=== PATIENT | male | born 1950 | race Caucasian/White ===

== ENCOUNTER 2017-09-04 08:49 | Emergency (ER) | payer OTHER, MEDICARE ==
[~2017-09-04] VITALS: Ht 190.5 cm; Wt 91.0 kg
[2017-09-04 09:02] VITALS: Ht 190.5 cm; Wt 91.0 kg
[2017-09-04 09:18] VITALS: TEMP 36.4
[2017-09-04] MEDS ORDERED: ACETAMINOPHEN 500 MG TAB PO STA (09:32)
--- NOTE | 2017-09-04 10:13 | DIAGNOSTIC IMAGING REPORT ---
L PELVIS/UNILATERAL HIP 2-3VIEWS CLINICAL HISTORY: LEFT HIP, PELVIS PAIN FROM FALL COMPARISON STUDY: None. FINDINGS: Nondisplaced fractures within the left superior and inferior pubic rami. No acute fracture or dislocation within the proximal left femur. There is mild osteoarthritis within the left hip. The sacrum appears intact. IMPRESSION: Nondisplaced left pubic ring fractures. Electronically signed by: Jacob Mancilla M.D. 09/04/2017 10:12 AM Dictated Date/Time: 09/04/2017 10:10 AM
--- NOTE | 2017-09-04 10:16 | DIAGNOSTIC IMAGING REPORT ---
LUMBAR SPINE 5 VIEWS HISTORY: LEFT LOW BACK PAIN, FALL FROM LADDER COMPARISON: None. FINDINGS: Moderate facet osteoarthritis within the lower lumbar spine. There is moderate disc space narrowing at L4-L5 and L5-S1 with small endplate osteophytes. Mild superior endplate compression fracture at L2 which demonstrates approximately 10-15% loss of height. No significant retropulsion. Possible fracture of the left L2 transverse process. No subluxation. Old, healed left-sided rib fractures. The sacrum appears intact. IMPRESSION: 1. Acute mild superior endplate compression fracture at L2. No retropulsion. 2. Possible fracture at the left L2 transverse process. 3. Degenerative changes as described above. Electronically signed by: Jacob Mancilla M.D. 09/04/2017 10:15 AM Dictated Date/Time: 09/04/2017 10:12 AM
[2017-09-04] MEDS ORDERED: OXYC1TAB3 PO (12:01)
--- NOTE | 2017-09-04 12:02 | EMERGENCY ROOM VISIT NOTE ---
ED Visit Note First contact with patient: 09:12 CHIEF COMPLAINT: Left low back and buttock pain after a fall one hour ago HISTORY OF PRESENT ILLNESS: Patient is a generally healthy 67-year-old white male who presents to emergency department for evaluation of left low back, hip and buttock pain after he fell off a ladder about an hour ago. He was roughly 9 feet up the ladder when it kicked out on him. He reports that he rode the ladder down, landing on his left back and side. He did not strike his head or lose consciousness and has complete recollection of the incident. He laid on the ground for a few moments before he felt well enough to get up. He was able to walk but it was difficult. He complains of pain in the left low back, extending into the left buttock and hip. He denies any neck pain, no anterior chest pain, rib pain or shortness of breath. He rates his pain a 10/10. He did take Aleve earlier today. He denies any numbness, tingling or weakness radiating into the lower extremities. REVIEW OF SYSTEMS: Review of systems as per HPI. All other systems reviewed were negative. At least 6 systems reviewed. PMH: Electronic medical records are reviewed and summarized as above/below. See Problem List. SOCIAL HISTORY: Patient lives at home with his near [place]. Nonsmoker. PHYSICAL EXAM: Vital Signs: Reviewed Nurse's notes. GENERAL: Patient is a pleasant, well-appearing 67-year-old white male who is awake and alert and in no acute distress. HEENT: Head - normocephalic and atraumatic. Pupils are equal, round, and reactive to light. Extraocular eye muscles are intact and sclera are anicteric. Ears - bilaterally patent canals with no evidence of hemotympanum. Nose - moist nasal mucosa without evidence of trauma or discharge. Mouth - moist buccal mucosa with no trauma to the teeth or signs of malocclusion. Neck: The neck is supple and there is no pain to palpation over the posterior cervical spine and no obvious step-offs or deformities. There is no JVD or tracheal deviation. Chest: There are no signs of deformities, contusions or abrasions to the chest wall. There is no obvious crepitus or paradoxical chest rise. Heart: Regular rate, and regular rhythm. Lungs: Breath sounds equal and clear to auscultation. Abdomen: Soft, completely nontender, nondistended, with good bowel sounds. There is no sign of trauma such as contusions, abrasions or penetrations. There are no palpable pulsatile masses or hepatosplenomegaly. There is no guarding, rigidity, or rebound noted. Extremities: No obvious trauma, deformities, contusions, or edema. He does not have any leg length discrepancy. There are linear abrasions noted over the anterior shins bilaterally. Ankles, calves and knees are nontender to palpation. He does not have any pain to palpation over the distal femur or the greater trochanter or in the left groin. Negative straight leg raise testing bilaterally. Hip range of motion is full and nontender. There are easily palpable peripheral pulses. Neuro: The patient is awake and alert and easily able to follow commands. Muscle strength is 5 out of 5 in all 4 extremities. Otherwise, neuro exam is unremarkable. Back: The entire thoracic, lumbar, and sacral spine were palpated. No discomfort over the thoracic spine spinous processes. He has discomfort low over the spinous processes of the lumbar spine, primarily on the last, extending into the left SI joint and into the left buttocks. There are no obvious step-offs or deformities noted. There are no obvious signs of trauma such as contusions abrasions penetrations noted to the back. EMERGENCY DEPARTMENT COURSE: The patient was seen and evaluated as above. He was offered medication for discomfort, had taken Aleve earlier today and did not want to take any narcotics until his imaging studies have been performed. He was given 1 g of Tylenol, and some ice packs. AP pelvis, left hip and lumbar spine x-rays are obtained. Pelvic x-ray noted nondisplaced fractures within the left superior and inferior pubic rami. Lumbar spine fractures noted a acute mild superior endplate compression fracture of L2, no retropulsion, possible fracture of the left L2 transverse process. There was a 10-15 15% loss of height of the vertebral fracture. No subluxation. Mild disc space narrowing was noted. All diagnostic imaging studies were reviewed with attending physician. The patient was issued crutches and instructed on a partial weight-bear gait on the left. He was given oxycodone 10 mg orally prior to discharge. He is established with an orthopedic surgery group out of [place], [place], and desires to follow-up with them regarding his injuries, which are nonsurgical in nature. Nonetheless, he was instructed to rest and avoid any strenuous activity until he can follow-up with orthopedics. He was given a copy of his radiographs for orthopedic follow-up. He was prescribed oxycodone for pain. He was ambulatory with crutches without difficulty. I do not suspect acute cord compression, epidural hematoma, intra-abdominal or retroperitoneal injury. The patient rated his discomfort a 6/10 at discharge. A friend was driving him home. Medication reconciliation: I attest that I have personally reviewed the patient' s current medication list. Blood pressure screening : Patient was found to have normal blood pressure on screening and does not require follow-up. L PELVIS/UNILATERAL HIP 2-3VIEWS CLINICAL HISTORY: LEFT HIP, PELVIS PAIN FROM FALL COMPARISON STUDY: None. FINDINGS: Nondisplaced fractures within the left superior and inferior pubic rami. No acute fracture or dislocation within the proximal left femur. There is mild osteoarthritis within the left hip. The sacrum appears intact. IMPRESSION: Nondisplaced left pubic ring fractures. LUMBAR SPINE 5 VIEWS HISTORY: LEFT LOW BACK PAIN, FALL FROM LADDER COMPARISON: None. FINDINGS: Moderate facet osteoarthritis within the lower lumbar spine. There is moderate disc space narrowing at L4-L5 and L5-S1 with small endplate osteophytes. Mild superior endplate compression fracture at L2 which demonstrates approximately 10-15% loss of height. No significant retropulsion. Possible fracture of the left L2 transverse process. No subluxation. Old, healed left-sided rib fractures. The sacrum appears intact. IMPRESSION: 1. Acute mild superior endplate compression fracture at L2. No retropulsion. 2. Possible fracture at the left L2 transverse process. 3. Degenerative changes as described above. Current/Historical Medications Scheduled PRN Oxycodone Immediate Rel Tab (Roxicodone Ir), 1-2 TAB PO Q4H PRN for Severe Pain Allergies Coded Allergies: No Known Allergies (Unverified , 09/04/17) Vital Signs Date Time Temp Pulse Resp B/P (MAP) Pulse Ox O2 Delivery O2 Flow Rate FiO2 09/04/17 12:29 68 18 127/76 95 09/04/17 10:27 64 18 105/71 96 Room Air 09/04/17 09:18 36.4 2/12/18 09:02 36.4 70 18 103/75 94 Room Air Medications Administered Medications (Trade) Dose Ordered Sig/Bisi Route Start Time Stop Time Status Last Admin Dose Admin Acetaminophen (Tylenol Tab) 1,000 mg NOW STAT PO 09/04/17 09:32 09/04/17 09:35 DC 09/04/17 09:32 1,000 MG Oxycodone HCl (Roxicodone Immediate Rel Tab) 10 mg NOW STAT PO 09/04/17 12:43 09/04/17 12:44 DC 09/04/17 12:57 10 MG Departure Information Impression Primary Impression: Fracture of left pelvis Additional Impression: Lumbar compression fracture Prescriptions Oxycodone Immediate Rel Tab (ROXICODONE IR) 5 Mg Tab 1-2 TAB PO Q4H Y for Severe Pain, #30 TAB For Initial Treatment Prov: Cecille Ragsdale PA 09/04/17 Referrals No Doctor, Assigned (PCP) Patient Instructions [facility] Additional Instructions Oxycodone (OxyIR) 5mg: Take 1-2 pills every four hours for breakthrough pain. Avoid alcohol, operating machinery or dangerous equipment, working on ladders or roofs, DRIVING, or situations where being under the influence may be dangerous. It is recommended to use an [id number] stool softener such as Colace, 100mg twice daily while taking this medication to avoid constipation. Ibuprofen(Motrin, Advil) may be used for fever or pain. Use 600mg every six hours as needed. Take with food. Avoid using more than 2400mg in a 24 hour period. Do not use 2400mg per day for more than three consecutive days without physician direction. Prolonged inappropriate use can lead to stomach upset or ulcers. This medication can be taken if you need to drive, work, or perform activities which may be dangerous when taking narcotic pain medication. (AND/OR) Acetaminophen(Tylenol) may be used for fever or pain. Use 1000mg every six hours as needed. Avoid using more than 3000mg in a 24 hour period. This medication can be taken if you need to drive, work, or perform activities which may be dangerous when taking narcotic pain medication. Ice compresses for 20 minutes at a time four times daily for 2-3 days. Use the crutches as instructed. Rest and elevate your injury. Continue current medications. Return to the ER immediately for any numbness, tingling, severe pain, extreme swelling in the extremity or as needed. Follow up with your orthopedic provider for further care and evaluation of your injuries. Take you xrays with you to your appointment. Problem Qualifiers
[2017-09-04 12:29] VITALS: BP 127/76; PULSE 68; O2SAT 95
[2017-09-04] MEDS ORDERED: OXYCODONE HCL IR 5 MG TAB (IMMEDIATE RELEASE) PO STA (12:43)
== END 2017-09-04 12:30 | disposition home or self-care (01) ==
LOC: C.EDB 08:50 → C.EDA 12:30
DX: S32.502A Unspecified fracture of left pubis, initial encounter for closed fracture (principal); S32.029A Unspecified fracture of second lumbar vertebra, initial encounter for closed fracture; W11.XXXA Fall on and from ladder, initial encounter; Y92.9 Unspecified place or not applicable